=== PATIENT | male | born 1940 | race Caucasian/White ===

== ENCOUNTER 2017-07-04 16:20 | Inpatient (IN) | payer OTHER ==
[2017-07-04 19:02] LABS: BASOPHILS # (AUTO) 0.2 X10^3/uL (0.0-0.1); BASOPHILS % (AUTO) 0.4 % (0.2-1.0); EOSINOPHILS # (AUTO) 0.2 x10^3/uL (0.0-0.2); EOSINOPHILS % (AUTO) 0.3 % (0.9-2.9); HEMATOCRIT 28.1 % (42.0-54.0); LYMPHOCYTES % (AUTO) 1.7 % (21.0-51.0); MEAN CORPUSCULAR HEMOGLOBIN 24.8 pg (27.0-34.0); MEAN CORPUSCULAR VOLUME 77.5 fL (80.0-100.0); MEAN PLATELET VOLUME 9.1 fL (7.4-11.0); MONOCYTES # (AUTO) 1.9 x10^3/uL (0.3-0.8); MONOCYTES % (AUTO) 3.2 % (0.0-13.0); NEUTROPHILS # (AUTO) 55.8 x10^3/uL (2.2-4.8); NEUTROPHILS % (AUTO) 94.4 % (42.0-75.0); PLATELET COUNT 276 X10^3/uL (150.0-450.0); RED BLOOD COUNT 3.63 X10^6/uL (4.7-6.0); RED CELL DISTRIBUTION WIDTH 21.9 % (11.6-16.5)
[2017-07-04 19:13] LABS: ALANINE AMINOTRANSFERASE 50 Units/L (12-78); ALBUMIN 1.8 g/dL (3.4-5.0); ALKALINE PHOSPHATASE 509 Units/L (46-116); ASPARTATE AMINO TRANSFERASE 49 Units/L (15-37); BLOOD UREA NITROGEN 45 mg/dL (7-18); CALCIUM 7.7 mg/dL (8.5-10.1); CARBON DIOXIDE 27.2 mmol/L (21-32); CHLORIDE 97 mmol/L (98-107); COR CA(FOR HYPOALB) 9.5 mg/dL (8.5-10.1); CREATININE 2.07 mg/dL (0.70-1.30); SODIUM 133 mmol/L (136-145); TOTAL PROTEIN 5.8 g/dL (6.4-8.2); WHITE BLOOD COUNT 59.1 X10^3/uL (3.6-10.0); eGFR BLACK RACES 40 (>60); eGFR NON BLACK RACES 33 (>60)
[2017-07-04 19:18] LABS: BAND NEUTROPHILS % 2 % (0-10)
[2017-07-04 19:19] LABS: ANISOCYTOSIS 1+; PLATELET MORPHOLOGY COMMENT NORMAL (NORMAL)
[2017-07-04 19:20] LABS: HYPOCHROMASIA SLIGHT; POIKILOCYTOSIS SLIGHT
[2017-07-04] MEDS: NS 1000 ML 1,000 ML IV SCH (21:28)
[2017-07-04] MEDS: FLAGYL TAB 500 MG PO SCH (21:29)
[2017-07-04] MEDS: CLEOCIN PO SCH (21:29)
[2017-07-05] MEDS: FLAGYL TAB 500 MG PO SCH ×3 (05:51→22:06)
[2017-07-05 06:21] VITALS: BMI 18.9
[2017-07-05 07:15] LABS: ALANINE AMINOTRANSFERASE 41 Units/L (12-78); ALBUMIN 1.7 g/dL (3.4-5.0); ALKALINE PHOSPHATASE 477 Units/L (46-116); ASPARTATE AMINO TRANSFERASE 41 Units/L (15-37); BLOOD UREA NITROGEN 49 mg/dL (7-18); CALCIUM 7.7 mg/dL (8.5-10.1); CARBON DIOXIDE 24.9 mmol/L (21-32); CHLORIDE 97 mmol/L (98-107); COR CA(FOR HYPOALB) 9.5 mg/dL (8.5-10.1); CREATININE 2.12 mg/dL (0.70-1.30); EOSINOPHILS # (AUTO) 0.1 x10^3/uL (0.0-0.2); EOSINOPHILS % (AUTO) 0.2 % (0.9-2.9); HEMATOCRIT 27.2 % (42.0-54.0); HEMOGLOBIN 8.7 g/dL (13.5-18.0); SODIUM 133 mmol/L (136-145); TOTAL PROTEIN 5.5 g/dL (6.4-8.2); eGFR BLACK RACES 39 (>60); eGFR NON BLACK RACES 33 (>60)
[2017-07-05 07:22] LABS: BASOPHILS # (AUTO) 0.3 X10^3/uL (0.0-0.1); BASOPHILS % (AUTO) 0.5 % (0.2-1.0); LYMPHOCYTES # (AUTO) 1.2 X10^3/uL (1.3-2.9); LYMPHOCYTES % (AUTO) 1.7 % (21.0-51.0); MEAN CORPUSCULAR HEMOGLOBIN 24.8 pg (27.0-34.0); MEAN CORPUSCULAR HGB CONC 31.8 g/dL (33.0-35.0); MEAN CORPUSCULAR VOLUME 78.1 fL (80.0-100.0); MEAN PLATELET VOLUME 9.8 fL (7.4-11.0); MONOCYTES % (AUTO) 4.4 % (0.0-13.0); NEUTROPHILS # (AUTO) 63.3 x10^3/uL (2.2-4.8); NEUTROPHILS % (AUTO) 93.2 % (42.0-75.0); PLATELET COUNT 261 X10^3/uL (150.0-450.0); RED BLOOD COUNT 3.49 X10^6/uL (4.7-6.0)
[2017-07-05 07:30] LABS: WHITE BLOOD COUNT 67.9 X10^3/uL (3.6-10.0)
[2017-07-05 07:31] LABS: BAND NEUTROPHILS % 8 % (0-10); PLATELET MORPHOLOGY COMMENT NORMAL (NORMAL)
[2017-07-05 07:32] LABS: ANISOCYTOSIS 1+
[2017-07-05] MEDS: NS 1000 ML 1,000 ML IV SCH ×2 (07:41→23:37)
[2017-07-05] MEDS ORDERED: TYLENOL #3 TAB (W/CODEINE) PO PRN (08:05)
[2017-07-05] MEDS: CLEOCIN PO SCH (08:12)
--- NOTE | 2017-07-05 08:24 | DR.H&P ---
H&P - History & Physical for Day of: H&P Date: 07/04/17 - Chief Complaint Chief Complaint: C Diff + with elevated WBC - Allergies Allergies/Adverse Reactions: Allergies Allergy/AdvReac Type Severity Reaction Status Date / Time No Known Drug Allergies Allergy Verified 07/04/17 18:41 - History of Present Illness History of Present Illness: the patient is a 76-year-old white male [facility]. Patient tested positive for C. diff. Was started on Flagyl and Vanco. Labs drawn. WBC noted to be 66K. Patient mildly dehydrated. Will admit for IV Fluids and observation. - Past Medical History Past Medical History: Anemia, CHF, COPD, Hypertension Additional Medical History: Pneumonia, A Fib, C Diff, Anemia, Constipation - Past Surgical History Surgical History: TURP Additional Surgical History: Pacemaker - Family History Family Medical History: Cancer, [place], Coronary Artery Disease - Social History Does patient currently use any type of tobacco product: No Have you used tobacco products in the last 12 months: No Type of Tobacco Use: None Does any household member use tobacco: No Alcohol Use: None Drug Use: None - Medications Home Medications: Acetaminophen [TYLENOL 325 MG TAB *] 2 tab PO Q4H PRN 07/04/17 [History Confirmed 07/04/17] Acetaminophen/Codeine Tab [TYLENOL w/CODEINE #3 (300 MG/30 MG) *] 1 tab PO Q6H PRN 07/04/17 [History Confirmed 07/04/17] Docusate Sodium [Colace] 1 cap PO DAILY 07/04/17 [History Confirmed 07/04/17] Fluticasone/Vilanterol [Breo Ellipta 100-25 Mcg INH] 1 puff INH DAILY 07/04/17 [ History Confirmed 07/04/17] Furosemide [LASIX TAB 40 MG *] 1 tab PO DAILY 07/04/17 [History Confirmed ] Ipratropium/Albuterol Nebule [DUONEB 0.5 MG/3 MG NEBULE *] 1 vial INH TID [History Confirmed 07/04/17] Loperamide HCl [Imodium A-D] 1 tab PO PRN PRN 07/04/17 [History Confirmed ] Loratadine [Claritin] 1 tab PO DAILY 07/04/17 [History Confirmed 07/04/17] Metronidazole [FLAGYL 500 MG *] 1 tab PO TID 07/04/17 [History Confirmed ] Misc Home Med [Patient's Home Medication] 1 applic TOP Q6H PRN 07/04/17 [ History Confirmed 07/04/17] Misc Home Med [Patient's Home Medication] 1 cap PO TID 07/04/17 [History Confirmed 07/04/17] Misc Home Med [Patient's Home Medication] 5 ml PO QID 07/04/17 [History Confirmed 07/04/17] Ondansetron HCl [ZOFRAN TAB 4 MG *] 1 tab PO Q6H PRN 07/04/17 [History Confirmed 07/04/17] RX: Amiodarone HCl 1 tab PO DAILY 07/04/17 [History Confirmed 07/04/17] RX: Aspirin EC [ASPIRIN EC 81 MG *] 1 tab PO DAILY 07/04/17 [History Confirmed 07/04/17] RX: Atorvastatin Calcium 1 tab PO DAILY 07/04/17 [History Confirmed 07/04/17] RX: Digoxin [LANOXIN TAB 0.125 MG *] 1 tab PO DAILY 07/04/17 [History Confirmed 07/04/17] RX: Ferrous Sulfate 1 tab PO DAILY 07/04/17 [History Confirmed 07/04/17] RX: Finasteride [Proscar] 1 tab PO DAILY 07/04/17 [History Confirmed 07/04/17] RX: Ibuprofen 2 tab PO Q4H PRN 07/04/17 [History Confirmed 07/04/17] RX: Metoprolol Tartrate 1 tab PO BID 07/04/17 [History Confirmed 07/04/17] RX: Omeprazole 1 cap PO DAILY 07/04/17 [History Confirmed 07/04/17] RX: Potassium Chloride 1 tab PO DAILY 07/04/17 [History Confirmed 07/04/17] - Review of Systems Constitutional: Malaise Eyes: No Symptoms Reported ENT: No Symptoms Reported Respiratory: No Symptoms Reported Cardiovascular: No Symptoms Reported Gastrointestinal: Diarrhea Genitourinary: No Symptoms Reported Musculoskeletal: No Symptoms Reported Skin: No Symptoms Reported Neurological: No Symptoms Reported - Physical Exam Vital Signs: Temperature 98.9 F Pulse Rate [Right] 67 Respiratory Rate 22 Blood Pressure [Right Arm] 126/53 O2 Sat by Pulse Oximetry 100 Oriented: Normal Eyes: Normal Ear: Normal Nose: Normal Throat: Normal Respiratory: Clear Throughout Cardiovascular: Normal : Normal Auscultation: Bowel Sounds: Normal Palpation: Normal Tenderness: Normal Skin: Normal Musculoskeletal: Normal Psychiatric: Normal Mood Description: Calm Affect: Normal Speech Pattern: Clear - Assessment/Plan (1) C. difficile diarrhea Status: Acute Plan: Flagyl and Vanco (2) Leukocytosis Status: Acute Plan: Labs daily. Vanco and Flagyl (3) Acute on chronic kidney failure Status: Acute Plan: IV Hydration, Labs
[2017-07-05] MEDS ORDERED: ADVIL TAB 200 MG PO PRN (08:29)
[2017-07-05] MEDS ORDERED: ZOFRAN TAB 4 MG PO PRN (08:29)
[2017-07-05] MEDS ORDERED: TYLENOL 325 MG TAB PO PRN (08:29)
[2017-07-05] MEDS ORDERED: LANOXIN PO SCH (09:00)
[2017-07-05] MEDS ORDERED: PATIENT'S HOME MEDICATION (Fluticasone/Vilanterol [Breo Ellipta 100-25 Mcg Inh] 1 PUFF) INH SCH (09:00)
[2017-07-05] MEDS ORDERED: IMODIUM CAP 2 MG PO PRN (09:45)
[2017-07-05] MEDS ORDERED: PHARMACY CONSULT - VANCOMYCIN XX SCH (10:00)
[2017-07-05] MEDS: MORPHINE SULFATE INJ 2 MG INJ IVP PRN (10:20)
[2017-07-05] MEDS: ASPIRIN EC 81 MG PO SCH (10:24)
[2017-07-05] MEDS: CLARITIN PO SCH (10:24)
[2017-07-05] MEDS: CORDARONE TAB 200 MG PO SCH (10:24)
[2017-07-05] MEDS: COLACE CAP 100 MG PO SCH (10:24)
[2017-07-05] MEDS: LASIX PO SCH (10:25)
[2017-07-05] MEDS: LIPITOR TAB 40 MG PO SCH (10:25)
[2017-07-05] MEDS: LOPRESSOR TAB 50 MG PO SCH ×2 (10:25→20:31)
[2017-07-05] MEDS: PROSCAR PO SCH (10:26)
[2017-07-05] MEDS: PriLOSEC PO SCH (10:26)
[2017-07-05] MEDS: HEMOCYTE-PLUS PO SCH (10:27)
[2017-07-05 11:47] LABS: STOOL FOR WBC POSITIVE (NEGATIVE)
[2017-07-05] MEDS: VANCOMYCIN HCL PO SCH ×3 (13:42→20:31)
[2017-07-05] MEDS: DUONEB 0.5 MG/3 MG NEB SCH ×2 (14:00→21:46)
[2017-07-05] MEDS ORDERED: FLAGYL TAB 500 MG PO SCH (14:00)
--- NOTE | 2017-07-05 14:06 | RAD ---
HISTORY: Leukocytosis. Study: Portable chest. Comparison: None. Findings: The trachea is midline. The cardiac silhouette is unremarkable. Multi lead left chest cardiac pacema ker. No obvious focal consolidation, pleural effusion, or pneumothorax. The bony thorax is unremark able. IMPRESSION: No acute cardiopulmonary disease. Reported By:
--- NOTE | 2017-07-05 18:01 | PCM.PROG ---
Progress Note - Progress Note for Day of Date: 07/05/17 - Subjective Subjective: 76WM DIRECT ADMIT FROM [facility] WITH C DIFF COLITIS AND EXTREME LEUKOCYTOSIS. PT CO ABDOMINAL TENDERNESS THIS AM, HURTING ALL OVER STOMACH. PT IS CURRENTLY ON IV ATBX THERAPY, CONTINUE HOME MEDICATION, HOLDING LAXOXIN DUE TO DIG LEVEL, CARDIAC MONITORING, CT ABD PELVIS, STOOLS STUDIES, REPEAT AM LABS - Past Medical Family Social History Allergies: Allergies No Known Drug Allergies Allergy (Verified 07/04/17 18:41) - Review of Systems ROS: No change since H&P - Vital Signs and I&O's Vital Signs: Temperature 98.1 F Pulse Rate [Right] 68 Pulse Rate 70 Respiratory Rate 24 Blood Pressure [Right Arm] 138/32 O2 Sat by Pulse Oximetry 98 Intake and Output: Intake & Output 07/03/17 07/04/17 07/05/17 07/06/17 11:59 11:59 11:59 11:59 Intake Total 1150 760 Output Total 3 Balance 1147 760 - Physical Exam Oriented: Normal Eyes: Normal Ear: Normal Nose: Normal Throat: Normal Respiratory: Diminished Cardiovascular: Normal. negative: Edema : Normal Auscultation: Bowel Sounds: Normal Tenderness: Diffuse Skin: Decreased Turgur Musculoskeletal: Normal Psychiatric: Normal Mood Description: Calm Affect: Normal Speech Pattern: Clear - Laboratory and Diagnostics Result Diagrams: 07/05/17 05:50 07/05/17 05:50 Labs: 07/05/17 10:19 Stool - Final Laboratory WBC 67.9 X10^3/uL (3.6-10.0) H* D 07/05/17 05:50 RBC 3.49 X10^6/uL (4.7-6.0) L 07/05/17 05:50 Hgb 8.7 g/dL (13.5-18.0) L 07/05/17 05:50 Hct 27.2 % (42.0-54.0) L 07/05/17 05:50 MCV 78.1 fL (80.0-100.0) L 07/05/17 05:50 MCH 24.8 pg (27.0-34.0) L 07/05/17 05:50 MCHC 31.8 g/dL (33.0-35.0) L 07/05/17 05:50 RDW 22.0 % (11.6-16.5) H 07/05/17 05:50 Plt Count 261 X10^3/uL (150.0-450.0) 07/05/17 05:50 Plt Count Comment Adequate (ADEQUATE) 07/05/17 05:50 MPV 9.8 fL (7.4-11.0) 07/05/17 05:50 Neut % (Auto) 93.2 % (42.0-75.0) H 07/05/17 05:50 Lymph % (Auto) 1.7 % (21.0-51.0) L 07/05/17 05:50 [place] % (Auto) 4.4 % (0.0-13.0) 07/05/17 05:50 Eos % (Auto) 0.2 % (0.9-2.9) L 07/05/17 05:50 Baso % (Auto) 0.5 % (0.2-1.0) 07/05/17 05:50 Neut # (Auto) 63.3 x10^3/uL (2.2-4.8) H 07/05/17 05:50 Lymph # (Auto) 1.2 X10^3/uL (1.3-2.9) L 07/05/17 05:50 [place] # (Auto) 3.0 x10^3/uL (0.3-0.8) H 07/05/17 05:50 Eos # (Auto) 0.1 x10^3/uL (0.0-0.2) 07/05/17 05:50 Baso # (Auto) 0.3 X10^3/uL (0.0-0.1) H 07/05/17 05:50 Absolute Nucleated RBC 0.0 /100WBC 07/05/17 05:50 Total Counted 100 07/05/17 05:50 Neutrophils % (Manual) 85 % (39-76) H 07/05/17 05:50 Band Neutrophils % 8 % (0-10) 07/05/17 05:50 Lymphocytes % (Manual) 2 % (13-43) L 07/05/17 05:50 Monocytes % (Manual) 5 % (4-9) 07/05/17 05:50 Plt Morphology Comment Normal (NORMAL) 07/05/17 05:50 RBC Morphology Abnormal (NORMAL) 07/05/17 05:50 Hypochromasia Slight A 07/04/17 18:41 Poikilocytosis Slight A 07/04/17 18:41 Anisocytosis 1+ A 07/05/17 05:50 Sodium 133 mmol/L (136-145) L 07/05/17 05:50 Corrected Sodium TNP 07/05/17 05:50 Potassium 4.5 mmol/L (3.5-5.1) 07/05/17 05:50 Chloride 97 mmol/L (98-107) L 07/05/17 05:50 Carbon Dioxide 24.9 mmol/L (21-32) 07/05/17 05:50 BUN 49 mg/dL (7-18) H 07/05/17 05:50 Creatinine 2.12 mg/dL (0.70-1.30) H 07/05/17 05:50 Est GFR (MDRD) Af Amer 39 (>60) L 07/05/17 05:50 Est GFR (MDRD) Non-Af 33 (>60) L 07/05/17 05:50 Glucose 88 mg/dL (65-99) 07/05/17 05:50 Calcium 7.7 mg/dL (8.5-10.1) L 07/05/17 05:50 Corrected Calcium 9.5 mg/dL (8.5-10.1) 07/05/17 05:50 Total Bilirubin 0.40 mg/dL (0.2-1.0) 07/05/17 05:50 AST 41 Units/L (15-37) H 07/05/17 05:50 ALT 41 Units/L (12-78) 07/05/17 05:50 Alkaline Phosphatase 477 Units/L (46-116) H 07/05/17 05:50 Total Protein 5.5 g/dL (6.4-8.2) L 07/05/17 05:50 Albumin 1.7 g/dL (3.4-5.0) L 07/05/17 05:50 Globulin 3.8 g/dL (2.5-4.5) 07/05/17 05:50 Albumin/Globulin Ratio 0.4 Ratio (1.1-2.1) L 07/05/17 05:50 Stool Description Fob tube 07/05/17 10:19 Stl Occult Blood (IFOB) Positive (NEGATIVE) A 07/05/17 10:19 Stool for White Cells Positive (NEGATIVE) A 07/05/17 10:19 Stl C. diff Tox B Gene Positive (NEGATIVE) A 07/05/17 10:19 Stl C. diff 027-NAP1-BI Positive (NEGATIVE) A 07/05/17 10:19 Digoxin 2.94 ng/mL (0.9-2) H* 07/05/17 05:50 - Plan (1) C. difficile diarrhea Status: Acute Plan: Flagyl and Vanco, PAIN AND NAUSEA CONTROL. REPEAT STOOL STUDIES. AM LABS , CBC WITH PERIPHERAL SMEAR. EKG, CXR, CT ABD PELVIS (2) Abdominal pain Status: Acute (3) Leukocytosis Status: Acute Plan: Labs daily. Vanco and Flagyl (4) Atrial fibrillation Status: Acute (5) Acute on chronic kidney failure Status: Acute Plan: IV Hydration, Labs (6) Atrial fibrillation Status: Acute
[2017-07-05] MEDS ORDERED: TYLENOL #3 TAB (W/CODEINE) PO ONE (22:09)
[2017-07-05] MEDS: TYLENOL #3 TAB (W/CODEINE) PO PRN (22:11)
--- NOTE | 2017-07-05 22:46 | CT ---
CT abdomen and pelvis without contrast Indication: Abdominal pain with leukocytosis Comparison: None available Technique: Multiple axial images of the abdomen and pelvis were obtained from the lung bases to the pubic symphy sis without the administration of IV contrast. Findings: There is increasing peribronchial consolidation within the right middle lobe and left lower lobe susp icious for developing infiltrate/pneumonia. There is a moderate size left pleural effusion. Given ruiz itations of a noncontrast examination no focal hepatic lesion is identified. Previous cholecystectomy is noted. Bile ducts are normal in caliber. The spleen demonstrates very thin peripheral calcificati on without discrete splenic lesion. Moderate atrophy of the entire pancreas without mass or ductal di latation. The adrenal glands are normal. Neither kidney demonstrates evidence of nephrolithiasis or h ydronephrosis. There is a round increased density nodule within the lower pole of the left kidney see n on coronal image 33 measuring approximately 1 cm which is indeterminate. The upper GI tract demonst rates no evidence of mass or obstruction. Urinary bladder is normal. Prostate gland is enlarged with central hypoattenuation potentially representing prior TURP however clinical correlation is needed. T he rectum and distal colon demonstrate moderate bowel wall thickening with surrounding inflammatory c hange consistent with fairly severe proctocolitis. Additionally there is moderate thickening and surr ounding inflammatory change within the cecum. Terminal ileum is unremarkable. The appendix is not wel l visualized. There is presacral stranding and fluid. Abdominal aorta demonstrates aneurysmal dilatat ion measuring approximately 2.6 cm in greatest caliber. Review of bone windows demonstrates no acute osseous abnormality. Degenerative change is noted within the right greater than left femoroacetabular joints. Impression: 1.Fairly severe bowel wall thickening with surrounding inflammatory change within the rectum, distal colon and cecum consistent with acute proctocolitis, It is not possible to exclude underlying neoplas m within the cecum or distal colon and attention on follow-up examination or colonoscopy is recommend ed for further evaluation. Small amount presacral fluid and stranding is suspected be reactive to the above proctocolitis. 2. A 1 cm increased density nodule within the periphery of the midpole of the left kidney is indeterm inate both hyperdense/hemorrhagic cyst or underlying solid renal neoplasm are considerations and atte ntion on follow-up examination with IV contrast is needed. 3. Prostatomegaly with CT findings suggesting prior TURP. 4. Infrarenal abdominal aortic aneurysm measuring 2.6 cm in greatest dimension with moderate calcifie d atherosclerotic disease. 5. Peribronchial consolidation within the right middle lobe and left lower lobe and small left-sided pleural effusion are suspect represent developing infiltrate/pneumonia. 6. Refer to above for other incidental findings. Reported By:
[2017-07-06] MEDS: DUONEB 0.5 MG/3 MG NEB SCH ×3 (05:01→20:30)
[2017-07-06] MEDS: FLAGYL TAB 500 MG PO SCH ×3 (05:58→21:05)
[2017-07-06 06:37] LABS: ALANINE AMINOTRANSFERASE 29 Units/L (12-78); ALBUMIN 1.5 g/dL (3.4-5.0); ALKALINE PHOSPHATASE 390 Units/L (46-116); ASPARTATE AMINO TRANSFERASE 27 Units/L (15-37); BLOOD UREA NITROGEN 48 mg/dL (7-18); CALCIUM 7.3 mg/dL (8.5-10.1); CARBON DIOXIDE 22.4 mmol/L (21-32); CHLORIDE 101 mmol/L (98-107); COR CA(FOR HYPOALB) 9.3 mg/dL (8.5-10.1); CREATININE 2.05 mg/dL (0.70-1.30); SODIUM 134 mmol/L (136-145); TOTAL PROTEIN 4.9 g/dL (6.4-8.2); eGFR BLACK RACES 41 (>60); eGFR NON BLACK RACES 34 (>60)
[2017-07-06] MEDS: MORPHINE SULFATE INJ 2 MG INJ IVP PRN ×2 (07:05→12:51)
[2017-07-06 07:26] LABS: BASOPHILS # (AUTO) 0.1 X10^3/uL (0.0-0.1); BASOPHILS % (AUTO) 0.2 % (0.2-1.0); EOSINOPHILS # (AUTO) 0.1 x10^3/uL (0.0-0.2); EOSINOPHILS % (AUTO) 0.2 % (0.9-2.9); HEMATOCRIT 25.8 % (42.0-54.0); HEMOGLOBIN 8.1 g/dL (13.5-18.0); LYMPHOCYTES # (AUTO) 0.6 X10^3/uL (1.3-2.9); LYMPHOCYTES % (AUTO) 0.9 % (21.0-51.0); MEAN CORPUSCULAR HEMOGLOBIN 24.7 pg (27.0-34.0); MEAN CORPUSCULAR HGB CONC 31.5 g/dL (33.0-35.0); MEAN CORPUSCULAR VOLUME 78.4 fL (80.0-100.0); MEAN PLATELET VOLUME 9.3 fL (7.4-11.0); MONOCYTES % (AUTO) 4.4 % (0.0-13.0); NEUTROPHILS # (AUTO) 63.4 x10^3/uL (2.2-4.8); NEUTROPHILS % (AUTO) 94.3 % (42.0-75.0); PLATELET COUNT 261 X10^3/uL (150.0-450.0); RED BLOOD COUNT 3.29 X10^6/uL (4.7-6.0); RED CELL DISTRIBUTION WIDTH 22.1 % (11.6-16.5)
[2017-07-06 07:31] LABS: WHITE BLOOD COUNT 67.3 X10^3/uL (3.6-10.0)
[2017-07-06] MEDS: BUTT CREAM (COMPOUND) TOP PRN (07:37)
[2017-07-06] MEDS: CLARITIN PO SCH (09:10)
[2017-07-06] MEDS: ASPIRIN EC 81 MG PO SCH (09:10)
[2017-07-06] MEDS: HEMOCYTE-PLUS PO SCH (09:11)
[2017-07-06] MEDS: COLACE CAP 100 MG PO SCH (09:11)
[2017-07-06] MEDS: LIPITOR TAB 40 MG PO SCH (09:11)
[2017-07-06] MEDS: LOPRESSOR TAB 50 MG PO SCH ×2 (09:11→21:05)
[2017-07-06] MEDS: K-DUR TAB 20 MEQ PO SCH (09:11)
[2017-07-06] MEDS: LASIX PO SCH (09:11)
[2017-07-06] MEDS: CORDARONE TAB 200 MG PO SCH (09:11)
[2017-07-06] MEDS: PROSCAR PO SCH (09:13)
[2017-07-06] MEDS: PriLOSEC PO SCH (09:13)
[2017-07-06] MEDS: NS 1000 ML 1,000 ML IV SCH (09:14)
[2017-07-06] MEDS: VANCOMYCIN HCL PO SCH ×4 (09:14→21:05)
--- NOTE | 2017-07-06 17:39 | PCM.PROG ---
Progress Note - Progress Note for Day of Date: 07/06/17 - Subjective Subjective: 76WM DIRECT ADMIT FROM [facility] WITH C DIFF COLITIS AND EXTREME LEUKOCYTOSIS. CBC SMEAR SENT FOR PATHOLOGY R/O LEUKEMIA. DISCUSSED CONSULTING ONCOLOGY AFTER PATH RESULTS. PT HAD CT ABD/PELVIS REVIEWED RESULTS WITH PT. PT HAS IMPROVED ABDOMINAL PAIN WITH MORPHINE IV. WILL REPEAT AM LABS - Past Medical Family Social History Past Med/Fam/Surg Hx: No changes since H&P Allergies: Allergies No Known Drug Allergies Allergy (Verified 07/04/17 18:41) - Review of Systems ROS: No change since H&P - Vital Signs and I&O's Vital Signs: Temperature 97.8 F Pulse Rate [Right] 92 Pulse Rate 90 Respiratory Rate 20 Blood Pressure [Right Arm] 91/55 O2 Sat by Pulse Oximetry 97 Intake and Output: Intake & Output 07/04/17 07/05/17 07/06/17 07/07/17 11:59 11:59 11:59 11:59 Intake Total 1150 2210 640 Output Total 3 Balance 1147 2210 640 - Physical Exam Oriented: Normal Eyes: Normal Ear: Normal Nose: Normal Throat: Normal Respiratory: Diminished Cardiovascular: Normal. negative: Edema : Normal Auscultation: Bowel Sounds: Normal Tenderness: Diffuse (MILD) Skin: Decreased Turgur Musculoskeletal: Normal Psychiatric: Normal Mood Description: Calm Affect: Normal Speech Pattern: Clear, Appropriate - Laboratory and Diagnostics Result Diagrams: 07/06/17 06:05 07/06/17 06:05 Labs: 07/05/17 10:19 Stool Stool Culture - Preliminary 07/05/17 10:19 Stool - Final 07/04/17 18:52 Blood Blood Culture - Preliminary 07/04/17 18:41 Blood Blood Culture - Preliminary Laboratory WBC 67.3 X10^3/uL (3.6-10.0) H* 07/06/17 06:05 RBC 3.29 X10^6/uL (4.7-6.0) L 07/06/17 06:05 Hgb 8.1 g/dL (13.5-18.0) L 07/06/17 06:05 Hct 25.8 % (42.0-54.0) L 07/06/17 06:05 MCV 78.4 fL (80.0-100.0) L 07/06/17 06:05 MCH 24.7 pg (27.0-34.0) L 07/06/17 06:05 MCHC 31.5 g/dL (33.0-35.0) L 07/06/17 06:05 RDW 22.1 % (11.6-16.5) H 07/06/17 06:05 Plt Count 261 X10^3/uL (150.0-450.0) 07/06/17 06:05 Plt Count Comment Adequate (ADEQUATE) 07/05/17 05:50 MPV 9.3 fL (7.4-11.0) 07/06/17 06:05 Neut % (Auto) 94.3 % (42.0-75.0) H 07/06/17 06:05 Lymph % (Auto) 0.9 % (21.0-51.0) L 07/06/17 06:05 Delta % (Auto) 4.4 % (0.0-13.0) 07/06/17 06:05 Eos % (Auto) 0.2 % (0.9-2.9) L 07/06/17 06:05 Baso % (Auto) 0.2 % (0.2-1.0) 07/06/17 06:05 Neut # (Auto) 63.4 x10^3/uL (2.2-4.8) H 07/06/17 06:05 Lymph # (Auto) 0.6 X10^3/uL (1.3-2.9) L 07/06/17 06:05 [place] # (Auto) 3.0 x10^3/uL (0.3-0.8) H 07/06/17 06:05 Eos # (Auto) 0.1 x10^3/uL (0.0-0.2) 07/06/17 06:05 Baso # (Auto) 0.1 X10^3/uL (0.0-0.1) 07/06/17 06:05 Absolute Nucleated RBC 0.0 /100WBC 07/06/17 06:05 Total Counted 100 07/05/17 05:50 Neutrophils % (Manual) 85 % (39-76) H 07/05/17 05:50 Band Neutrophils % 8 % (0-10) 07/05/17 05:50 Lymphocytes % (Manual) 2 % (13-43) L 07/05/17 05:50 Monocytes % (Manual) 5 % (4-9) 07/05/17 05:50 Plt Morphology Comment Normal (NORMAL) 07/05/17 05:50 RBC Morphology Abnormal (NORMAL) 07/05/17 05:50 Hypochromasia Slight A 07/04/17 18:41 Poikilocytosis Slight A 07/04/17 18:41 Anisocytosis 1+ A 07/05/17 05:50 Sodium 134 mmol/L (136-145) L 07/06/17 06:05 Corrected Sodium TNP 07/06/17 06:05 Potassium 4.1 mmol/L (3.5-5.1) 07/06/17 06:05 Chloride 101 mmol/L (98-107) 07/06/17 06:05 Carbon Dioxide 22.4 mmol/L (21-32) 07/06/17 06:05 BUN 48 mg/dL (7-18) H 07/06/17 06:05 Creatinine 2.05 mg/dL (0.70-1.30) H 07/06/17 06:05 Est GFR (MDRD) Af Amer 41 (>60) L 07/06/17 06:05 Est GFR (MDRD) Non-Af 34 (>60) L 07/06/17 06:05 Glucose 91 mg/dL (65-99) 07/06/17 06:05 Calcium 7.3 mg/dL (8.5-10.1) L 07/06/17 06:05 Corrected Calcium 9.3 mg/dL (8.5-10.1) 07/06/17 06:05 Total Bilirubin 0.60 mg/dL (0.2-1.0) 07/06/17 06:05 AST 27 Units/L (15-37) 07/06/17 06:05 ALT 29 Units/L (12-78) 07/06/17 06:05 Alkaline Phosphatase 390 Units/L (46-116) H 07/06/17 06:05 Total Protein 4.9 g/dL (6.4-8.2) L 07/06/17 06:05 Albumin 1.5 g/dL (3.4-5.0) L 07/06/17 06:05 Globulin 3.4 g/dL (2.5-4.5) 07/06/17 06:05 Albumin/Globulin Ratio 0.4 Ratio (1.1-2.1) L 07/06/17 06:05 Stool Description Fob tube 07/05/17 10:19 Stl Occult Blood (IFOB) Positive (NEGATIVE) A 07/05/17 10:19 Stool for White Cells Positive (NEGATIVE) A 07/05/17 10:19 Stl C. diff Tox B Gene Positive (NEGATIVE) A 07/05/17 10:19 Stl C. diff 027-NAP1-BI Positive (NEGATIVE) A 07/05/17 10:19 Digoxin 2.94 ng/mL (0.9-2) H* 07/05/17 05:50 - Plan (1) C. difficile diarrhea Status: Acute Plan: Flagyl and Vanco, PAIN AND NAUSEA CONTROL. REPEAT STOOL STUDIES COLLECTED. AM LABS, CBC WITH PERIPHERAL SMEAR/ PATHOLOGY PENDING. ANUSOL SUPP. CONTINUE HOME MEDICATION, I & OS, AM CXR (2) Abdominal pain Status: Acute (3) Leukocytosis Status: Acute Plan: Labs daily. Vanco and Flagyl (4) Atrial fibrillation Status: Acute (5) Acute on chronic kidney failure Status: Acute Plan: IV Hydration, Labs (6) Proctitis Status: Acute Plan: IV ATBX, RECTAL CORTISONE
[2017-07-06] MEDS: ANUCORT-HC SUPP PR SCH ×2 (18:15→21:04)
[2017-07-07 04:26] LABS: BASOPHILS # (AUTO) 0.1 X10^3/uL (0.0-0.1); BASOPHILS % (AUTO) 0.2 % (0.2-1.0); EOSINOPHILS # (AUTO) 0.1 x10^3/uL (0.0-0.2); EOSINOPHILS % (AUTO) 0.2 % (0.9-2.9); HEMATOCRIT 25.7 % (42.0-54.0); HEMOGLOBIN 8.4 g/dL (13.5-18.0); LYMPHOCYTES # (AUTO) 0.8 X10^3/uL (1.3-2.9); LYMPHOCYTES % (AUTO) 1.4 % (21.0-51.0); MEAN CORPUSCULAR HEMOGLOBIN 25.5 pg (27.0-34.0); MEAN CORPUSCULAR HGB CONC 32.6 g/dL (33.0-35.0); MEAN CORPUSCULAR VOLUME 78.4 fL (80.0-100.0); MEAN PLATELET VOLUME 8.9 fL (7.4-11.0); MONOCYTES # (AUTO) 1.9 x10^3/uL (0.3-0.8); MONOCYTES % (AUTO) 3.4 % (0.0-13.0); NEUTROPHILS # (AUTO) 52.1 x10^3/uL (2.2-4.8); NEUTROPHILS % (AUTO) 94.8 % (42.0-75.0); PLATELET COUNT 244 X10^3/uL (150.0-450.0); RED BLOOD COUNT 3.28 X10^6/uL (4.7-6.0); RED CELL DISTRIBUTION WIDTH 21.9 % (11.6-16.5)
[2017-07-07 04:27] LABS: ALBUMIN 1.4 g/dL (3.4-5.0); CALCIUM 7.2 mg/dL (8.5-10.1); CARBON DIOXIDE 23.7 mmol/L (21-32); COR CA(FOR HYPOALB) 9.3 mg/dL (8.5-10.1); CREATININE 2.09 mg/dL (0.70-1.30); TOTAL PROTEIN 4.7 g/dL (6.4-8.2)
[2017-07-07 04:56] LABS: BAND NEUTROPHILS % 14 % (0-10)
[2017-07-07 04:57] LABS: ANISOCYTOSIS 1+; HYPOCHROMASIA SLIGHT; PLATELET MORPHOLOGY COMMENT NORMAL (NORMAL)
[2017-07-07] MEDS: DUONEB 0.5 MG/3 MG NEB SCH (05:00)
[2017-07-07] MEDS: NS 1000 ML 1,000 ML IV SCH (06:08)
[2017-07-07] MEDS: MORPHINE SULFATE INJ 2 MG INJ IVP PRN (06:08)
--- NOTE | 2017-07-07 07:35 | RAD ---
HISTORY: Shortness of breath Study: Chest AP portable Comparison: 07/05/2017 Findings: There is a pacemaker present on the left. The heart is within normal limits in size. No congestive he art failure is noted. The upper lung schultz are clear. Abnormal parenchymal density has developed in the medial lung bases bilaterally which could be on the basis of developing infiltrates or developing atelectasis. Follow-up is recommended. No pleural effusions are identified. The bony thorax is unrem arkable. IMPRESSION: Bibasilar opacities which could represent developing pneumonia, developing atelectasis or both. Follo w-up is recommended. Reported By:
[2017-07-07] MEDS: FLAGYL TAB 500 MG PO SCH ×3 (08:05→21:25)
[2017-07-07 08:36] LABS: CKMB % 4.2 % (<4); CREATINE KINASE 24 Units/L (39-308); CREATINE KINASE MB < 1.0 ng/mL (0-4.0); TROPONIN I < 0.02 ng/mL (0-1.5)
[2017-07-07 09:03] LABS: ABG ALLEN TEST POS; ABG BASE EXCESS -1.7 mmol/L (-2.0-2.0); ABG HCO3 21.5 mmol/L (22-26)
[2017-07-07] MEDS: CLARITIN PO SCH (09:11)
[2017-07-07] MEDS: COLACE CAP 100 MG PO SCH (09:11)
[2017-07-07] MEDS: ANUCORT-HC SUPP PR SCH ×2 (09:11→21:26)
[2017-07-07] MEDS: ASPIRIN EC 81 MG PO SCH (09:11)
[2017-07-07] MEDS: HEMOCYTE-PLUS PO SCH (09:12)
[2017-07-07] MEDS: LIPITOR TAB 40 MG PO SCH (09:12)
[2017-07-07] MEDS: K-DUR TAB 20 MEQ PO SCH (09:12)
[2017-07-07] MEDS: CORDARONE TAB 200 MG PO SCH (09:12)
[2017-07-07] MEDS: PriLOSEC PO SCH (09:12)
[2017-07-07] MEDS: LASIX PO SCH (09:12)
[2017-07-07] MEDS: LOPRESSOR TAB 50 MG PO SCH ×2 (09:12→21:25)
[2017-07-07] MEDS: PROSCAR PO SCH (09:13)
[2017-07-07] MEDS: VANCOMYCIN HCL PO SCH ×4 (09:13→21:26)
[2017-07-07] MEDS: XOPENEX 1.25 MG/3 ML NEBULE NEB SCH ×3 (12:00→22:17)
[2017-07-07] MEDS ORDERED: SALINE 3% 15 ML NEB TX ONE (12:27)
--- NOTE | 2017-07-07 14:48 | PCM.PROG ---
Progress Note - Progress Note for Day of Date: 07/07/17 - Subjective Subjective: 76WM DIRECT ADMIT FROM [facility] WITH C DIFF COLITIS AND EXTREME LEUKOCYTOSIS. CBC SMEAR SENT FOR PATHOLOGY R/O LEUKEMIA. DISCUSSED CONSULTING ONCOLOGY AFTER PATH RESULTS. PT CONTINUES WITH CO ABDOMINAL PAIN, PT HAS HX AFIB AND TELEMERTY WITH RATE 120'S-130'S. PT MOVED TO ICU, FOR CRITICAL CARE MANAGEMENT - Past Medical Family Social History Past Med/Fam/Surg Hx: No changes since H&P Allergies: Allergies No Known Drug Allergies Allergy (Verified 07/04/17 18:41) - Review of Systems ROS: No change since H&P, Changes notes (describe) - Vital Signs and I&O's Vital Signs: Temperature 98.7 F Pulse Rate [Right] 122 Pulse Rate 110 Respiratory Rate 24 Blood Pressure [Right Arm] 101/53 O2 Sat by Pulse Oximetry 97 Intake and Output: Intake & Output 07/05/17 07/06/17 07/07/17 07/08/17 11:59 11:59 11:59 11:59 Intake Total 1150 2210 1790 Output Total 3 Balance 1147 2210 1790 - Physical Exam Oriented: Normal Eyes: Normal Ear: Normal Nose: Normal Throat: Normal Respiratory: Diminished Cardiovascular: Normal. negative: Edema : Normal Auscultation: Bowel Sounds: Normal Tenderness: Diffuse (MILD) Skin: Decreased Turgur Musculoskeletal: Normal Psychiatric: Normal Mood Description: Calm Affect: Normal Speech Pattern: Clear, Appropriate - Laboratory and Diagnostics Result Diagrams: 07/07/17 03:45 07/07/17 03:45 Labs: 07/05/17 10:19 Stool Stool Culture - Final 07/05/17 10:19 Stool - Final 07/04/17 18:52 Blood Blood Culture - Preliminary 07/04/17 18:41 Blood Blood Culture - Preliminary Laboratory WBC 55.0 X10^3/uL (3.6-10.0) H* D 07/07/17 03:45 RBC 3.28 X10^6/uL (4.7-6.0) L 07/07/17 03:45 Hgb 8.4 g/dL (13.5-18.0) L 07/07/17 03:45 Hct 25.7 % (42.0-54.0) L 07/07/17 03:45 MCV 78.4 fL (80.0-100.0) L 07/07/17 03:45 MCH 25.5 pg (27.0-34.0) L 07/07/17 03:45 MCHC 32.6 g/dL (33.0-35.0) L 07/07/17 03:45 RDW 21.9 % (11.6-16.5) H 07/07/17 03:45 Plt Count 244 X10^3/uL (150.0-450.0) 07/07/17 03:45 Plt Count Comment Adequate (ADEQUATE) 07/07/17 03:45 MPV 8.9 fL (7.4-11.0) 07/07/17 03:45 Neut % (Auto) 94.8 % (42.0-75.0) H 07/07/17 03:45 Lymph % (Auto) 1.4 % (21.0-51.0) L 07/07/17 03:45 [place] % (Auto) 3.4 % (0.0-13.0) 07/07/17 03:45 Eos % (Auto) 0.2 % (0.9-2.9) L 07/07/17 03:45 Baso % (Auto) 0.2 % (0.2-1.0) 07/07/17 03:45 Neut # (Auto) 52.1 x10^3/uL (2.2-4.8) H 07/07/17 03:45 Lymph # (Auto) 0.8 X10^3/uL (1.3-2.9) L 07/07/17 03:45 [place] # (Auto) 1.9 x10^3/uL (0.3-0.8) H 07/07/17 03:45 Eos # (Auto) 0.1 x10^3/uL (0.0-0.2) 07/07/17 03:45 Baso # (Auto) 0.1 X10^3/uL (0.0-0.1) 07/07/17 03:45 Absolute Nucleated RBC 0.0 /100WBC 07/07/17 03:45 Total Counted 100 07/07/17 03:45 Neutrophils % (Manual) 81 % (39-76) H 07/07/17 03:45 Band Neutrophils % 14 % (0-10) H 07/07/17 03:45 Lymphocytes % (Manual) 2 % (13-43) L 07/07/17 03:45 Monocytes % (Manual) 3 % (4-9) L 07/07/17 03:45 Plt Morphology Comment Normal (NORMAL) 07/07/17 03:45 RBC Morphology Abnormal (NORMAL) 07/07/17 03:45 Hypochromasia Slight A 07/07/17 03:45 Poikilocytosis Slight A 07/04/17 18:41 Anisocytosis 1+ A 07/07/17 03:45 Smear Path Review See note 07/05/17 05:50 Sample Site Lra 07/07/17 09:00 ABG pH 7.450 (7.35-7.45) 07/07/17 09:00 ABG pCO2 31.0 mmHg (35.0-45.0) L 07/07/17 09:00 ABG pO2 95.0 mmHg (80.0-100.0) 07/07/17 09:00 ABG HCO3 21.5 mmol/L (22-26) L 07/07/17 09:00 ABG O2 Saturation 98.0 % (90-100) 07/07/17 09:00 ABG Base Excess -1.7 mmol/L (-2.0-2.0) 07/07/17 09:00 Eb Test Pos 07/07/17 09:00 A-a Gradient 66.0 mmHg 07/07/17 09:00 FiO2 28.000 07/07/17 09:00 Blood Gas Comments Tasia well cs 07/07/17 09:00 Sodium 136 mmol/L (136-145) 07/07/17 03:45 Corrected Sodium 136 mmol/L (136-145) 07/07/17 03:45 Potassium 4.1 mmol/L (3.5-5.1) 07/07/17 03:45 Chloride 103 mmol/L (98-107) 07/07/17 03:45 Carbon Dioxide 23.7 mmol/L (21-32) 07/07/17 03:45 BUN 47 mg/dL (7-18) H 07/07/17 03:45 Creatinine 2.09 mg/dL (0.70-1.30) H 07/07/17 03:45 Est GFR (MDRD) Af Amer 40 (>60) L 07/07/17 03:45 Est GFR (MDRD) Non-Af 33 (>60) L 07/07/17 03:45 Glucose 113 mg/dL (65-99) H 07/07/17 03:45 Lactic Acid 1.7 mmol/L (0.4-2.0) 07/07/17 09:13 Calcium 7.2 mg/dL (8.5-10.1) L 07/07/17 03:45 Corrected Calcium 9.3 mg/dL (8.5-10.1) 07/07/17 03:45 Total Bilirubin 0.50 mg/dL (0.2-1.0) 07/07/17 03:45 AST 27 Units/L (15-37) 07/07/17 03:45 ALT 20 Units/L (12-78) 07/07/17 03:45 Alkaline Phosphatase 429 Units/L (46-116) H 07/07/17 03:45 Creatine Kinase 24 Units/L (39-308) L 07/07/17 08:05 CK-MB (CK-2) < 1.0 ng/mL (0-4.0) 07/07/17 08:05 CK/CKMB % Calc 4.2 % (<4) 07/07/17 08:05 Troponin I < 0.02 ng/mL (0-1.5) 07/07/17 08:05 Total Protein 4.7 g/dL (6.4-8.2) L 07/07/17 03:45 Albumin 1.4 g/dL (3.4-5.0) L 07/07/17 03:45 Globulin 3.3 g/dL (2.5-4.5) 07/07/17 03:45 Albumin/Globulin Ratio 0.4 Ratio (1.1-2.1) L 07/07/17 03:45 Stool Description Fob tube 07/05/17 10:19 Stl Occult Blood (IFOB) Positive (NEGATIVE) A 07/05/17 10:19 Stool for White Cells Positive (NEGATIVE) A 07/05/17 10:19 Stl C. diff Tox B Gene Positive (NEGATIVE) A 07/05/17 10:19 Stl C. diff [id number] Positive (NEGATIVE) A 07/05/17 10:19 Digoxin 1.91 ng/mL (0.9-2) 07/07/17 08:05 - Plan (1) C. difficile diarrhea Status: Acute Plan: Flagyl and Vanco, PAIN AND NAUSEA CONTROL. REPEAT STOOL STUDIES COLLECTED. AM LABS, CBC WITH PERIPHERAL SMEAR/ PATHOLOGY PENDING. ANUSOL SUPP. CONTINUE HOME MEDICATION, I & OS, AM CXR (2) Abdominal pain Status: Acute (3) Leukocytosis Status: Acute Plan: Labs daily. Vanco and Flagyl (4) Atrial fibrillation Status: Acute Plan: AMIODERONE, BB, LANOXIN. MISDRAW HAND, CARDIAC PROFILE THIS AM (5) Acute on chronic kidney failure Status: Acute Plan: IV Hydration, Labs (6) Proctitis Status: Acute Plan: IV ATBX, RECTAL CORTISONE (7) Pneumonia Status: Acute
[2017-07-07] MEDS: LANOXIN PO SCH (15:55)
[2017-07-08] MEDS: NS 1000 ML 1,000 ML IV SCH ×3 (01:55→17:24)
[2017-07-08] MEDS: FLAGYL TAB 500 MG PO SCH ×3 (05:33→21:13)
[2017-07-08 07:06] LABS: BASOPHILS # (AUTO) 0.2 X10^3/uL (0.0-0.1); BASOPHILS % (AUTO) 0.4 % (0.2-1.0); EOSINOPHILS # (AUTO) 0.4 x10^3/uL (0.0-0.2); EOSINOPHILS % (AUTO) 1.1 % (0.9-2.9); HEMATOCRIT 29.1 % (42.0-54.0); HEMOGLOBIN 9.3 g/dL (13.5-18.0); LYMPHOCYTES # (AUTO) 0.9 X10^3/uL (1.3-2.9); LYMPHOCYTES % (AUTO) 2.3 % (21.0-51.0); MEAN CORPUSCULAR HEMOGLOBIN 25.3 pg (27.0-34.0); MEAN PLATELET VOLUME 9.1 fL (7.4-11.0); MONOCYTES # (AUTO) 1.5 x10^3/uL (0.3-0.8); MONOCYTES % (AUTO) 3.9 % (0.0-13.0); NEUTROPHILS # (AUTO) 35.9 x10^3/uL (2.2-4.8); NEUTROPHILS % (AUTO) 92.3 % (42.0-75.0); PLATELET COUNT 260 X10^3/uL (150.0-450.0); RED BLOOD COUNT 3.69 X10^6/uL (4.7-6.0); RED CELL DISTRIBUTION WIDTH 21.6 % (11.6-16.5)
[2017-07-08 07:12] LABS: WHITE BLOOD COUNT 38.9 X10^3/uL (3.6-10.0)
[2017-07-08 07:13] LABS: PLATELET MORPHOLOGY COMMENT NORMAL (NORMAL)
[2017-07-08 07:21] LABS: ANISOCYTOSIS 1+; HYPOCHROMASIA SLIGHT
[2017-07-08 07:28] LABS: ALANINE AMINOTRANSFERASE 19 Units/L (12-78); ALBUMIN 1.5 g/dL (3.4-5.0); ALKALINE PHOSPHATASE 556 Units/L (46-116); ASPARTATE AMINO TRANSFERASE 35 Units/L (15-37); BLOOD UREA NITROGEN 40 mg/dL (7-18); CALCIUM 7.2 mg/dL (8.5-10.1); CARBON DIOXIDE 21.2 mmol/L (21-32); CHLORIDE 105 mmol/L (98-107); COR CA(FOR HYPOALB) 9.2 mg/dL (8.5-10.1); CREATININE 1.82 mg/dL (0.70-1.30); SODIUM 137 mmol/L (136-145); eGFR BLACK RACES 47 (>60); eGFR NON BLACK RACES 39 (>60)
[2017-07-08 07:32] LABS: DIGOXIN 2.01 ng/mL (0.9-2)
[2017-07-08] MEDS: ASPIRIN EC 81 MG PO SCH (08:06)
[2017-07-08] MEDS: CLARITIN PO SCH (08:06)
[2017-07-08] MEDS: LANOXIN PO SCH (08:06)
[2017-07-08] MEDS: HEMOCYTE-PLUS PO SCH (08:06)
[2017-07-08] MEDS: LIPITOR TAB 40 MG PO SCH (08:06)
[2017-07-08] MEDS: LASIX PO SCH (08:07)
[2017-07-08] MEDS: CORDARONE TAB 200 MG PO SCH (08:07)
[2017-07-08] MEDS: PROSCAR PO SCH (08:07)
[2017-07-08] MEDS: VANCOMYCIN HCL PO SCH ×4 (08:07→20:54)
[2017-07-08] MEDS: COLACE CAP 100 MG PO SCH (08:08)
[2017-07-08] MEDS: PriLOSEC PO SCH (08:08)
[2017-07-08] MEDS: LOPRESSOR TAB 50 MG PO SCH ×2 (08:08→20:53)
[2017-07-08] MEDS: K-DUR TAB 20 MEQ PO SCH (08:08)
[2017-07-08] MEDS: TYLENOL #3 TAB (W/CODEINE) PO PRN ×3 (08:12→23:34)
[2017-07-08] MEDS: XOPENEX 1.25 MG/3 ML NEBULE NEB SCH ×4 (09:50→21:54)
[2017-07-08 13:05] LABS: IRON 13 ug/dL (50-175); TOTAL IRON BINDING CAPACITY 77 ug/dL (250-450)
[2017-07-08] MEDS: BUTT CREAM (COMPOUND) TOP PRN (23:33)
[2017-07-09] MEDS: TYLENOL #3 TAB (W/CODEINE) PO PRN ×2 (05:45→20:05)
[2017-07-09] MEDS: FLAGYL TAB 500 MG PO SCH ×3 (05:45→21:10)
[2017-07-09] MEDS: BUTT CREAM (COMPOUND) TOP PRN ×2 (05:45→21:00)
[2017-07-09 06:02] LABS: BASOPHILS # (AUTO) 0.2 X10^3/uL (0.0-0.1); BASOPHILS % (AUTO) 0.7 % (0.2-1.0); EOSINOPHILS # (AUTO) 0.4 x10^3/uL (0.0-0.2); EOSINOPHILS % (AUTO) 1.4 % (0.9-2.9); HEMATOCRIT 25.9 % (42.0-54.0); HEMOGLOBIN 8.3 g/dL (13.5-18.0); LYMPHOCYTES # (AUTO) 0.9 X10^3/uL (1.3-2.9); MEAN CORPUSCULAR HEMOGLOBIN 25.4 pg (27.0-34.0); MEAN CORPUSCULAR HGB CONC 32.1 g/dL (33.0-35.0); MEAN PLATELET VOLUME 9.4 fL (7.4-11.0); MONOCYTES # (AUTO) 1.4 x10^3/uL (0.3-0.8); MONOCYTES % (AUTO) 4.7 % (0.0-13.0); NEUTROPHILS # (AUTO) 27.5 x10^3/uL (2.2-4.8); NEUTROPHILS % (AUTO) 90.2 % (42.0-75.0); PLATELET COUNT 245 X10^3/uL (150.0-450.0); RED BLOOD COUNT 3.28 X10^6/uL (4.7-6.0); RED CELL DISTRIBUTION WIDTH 21.3 % (11.6-16.5)
[2017-07-09 06:10] LABS: WHITE BLOOD COUNT 30.5 X10^3/uL (3.6-10.0)
[2017-07-09 06:12] LABS: ALANINE AMINOTRANSFERASE 17 Units/L (12-78); ALBUMIN 1.4 g/dL (3.4-5.0); ALKALINE PHOSPHATASE 548 Units/L (46-116); ASPARTATE AMINO TRANSFERASE 39 Units/L (15-37); BLOOD UREA NITROGEN 37 mg/dL (7-18); CALCIUM 6.9 mg/dL (8.5-10.1); CARBON DIOXIDE 18.6 mmol/L (21-32); CHLORIDE 107 mmol/L (98-107); CREATININE 1.81 mg/dL (0.70-1.30); SODIUM 136 mmol/L (136-145); TOTAL PROTEIN 4.6 g/dL (6.4-8.2); eGFR BLACK RACES 47 (>60); eGFR NON BLACK RACES 39 (>60)
[2017-07-09 06:29] LABS: PLATELET MORPHOLOGY COMMENT NORMAL (NORMAL)
[2017-07-09 06:31] LABS: ANISOCYTOSIS 2+; HYPOCHROMASIA 1+
--- NOTE | 2017-07-09 07:31 | RAD ---
HISTORY: 76-year-old male with C difficile and leukocytosis. Study: Frontal view of the chest. Comparison: Chest radiograph 07/07/2017 Findings: Left chest AICD is stable. The trachea is midline. The cardiac silhouette is stable. Improved pattern of aeration with mildly persistent left basilar airspace opacities without large effusion or pneumothorax. Soft tissues are u nremarkable. Osseous structures are unremarkable. IMPRESSION: 1. Improved pattern of aeration with mildly persistent left basilar airspace opacities. This suggests likely atelectasis, however, small developing pneumonia is not entirely excluded. Correlate clinical ly and follow-up to resolution. Reported By:
[2017-07-09] MEDS: HEMOCYTE-PLUS PO SCH (09:18)
[2017-07-09] MEDS: PROSCAR PO SCH (09:18)
[2017-07-09] MEDS: COLACE CAP 100 MG PO SCH ×2 (09:19)
[2017-07-09] MEDS: ASPIRIN EC 81 MG PO SCH (09:20)
[2017-07-09] MEDS: CLARITIN PO SCH (09:20)
[2017-07-09] MEDS: CORDARONE TAB 200 MG PO SCH (09:20)
[2017-07-09] MEDS: LIPITOR TAB 40 MG PO SCH (09:20)
[2017-07-09] MEDS: VANCOMYCIN HCL PO SCH ×4 (09:20→20:05)
[2017-07-09] MEDS: K-DUR TAB 20 MEQ PO SCH (09:21)
[2017-07-09] MEDS: LANOXIN PO SCH (09:21)
[2017-07-09] MEDS: LASIX PO SCH (09:21)
[2017-07-09] MEDS: LOPRESSOR TAB 50 MG PO SCH ×2 (09:21→21:54)
[2017-07-09] MEDS: PriLOSEC PO SCH (09:21)
[2017-07-09] MEDS: XOPENEX 1.25 MG/3 ML NEBULE NEB SCH ×4 (09:31→20:47)
[2017-07-09] MEDS: NS 1000 ML 1,000 ML IV SCH ×3 (12:01→22:19)
[2017-07-10] MEDS: FLAGYL TAB 500 MG PO SCH ×4 (06:10→21:45)
[2017-07-10 06:23] LABS: BASOPHILS # (AUTO) 0.1 X10^3/uL (0.0-0.1); BASOPHILS % (AUTO) 0.6 % (0.2-1.0); EOSINOPHILS # (AUTO) 0.4 x10^3/uL (0.0-0.2); EOSINOPHILS % (AUTO) 1.7 % (0.9-2.9); HEMATOCRIT 30.3 % (42.0-54.0); HEMOGLOBIN 9.7 g/dL (13.5-18.0); LYMPHOCYTES # (AUTO) 1.2 X10^3/uL (1.3-2.9); MEAN CORPUSCULAR HEMOGLOBIN 25.6 pg (27.0-34.0); MEAN CORPUSCULAR VOLUME 79.9 fL (80.0-100.0); MEAN PLATELET VOLUME 9.1 fL (7.4-11.0); MONOCYTES # (AUTO) 1.2 x10^3/uL (0.3-0.8); MONOCYTES % (AUTO) 5.1 % (0.0-13.0); NEUTROPHILS # (AUTO) 20.4 x10^3/uL (2.2-4.8); NEUTROPHILS % (AUTO) 87.6 % (42.0-75.0); PLATELET COUNT 301 X10^3/uL (150.0-450.0); RED BLOOD COUNT 3.79 X10^6/uL (4.7-6.0); RED CELL DISTRIBUTION WIDTH 21.9 % (11.6-16.5); WHITE BLOOD COUNT 23.3 X10^3/uL (3.6-10.0)
[2017-07-10 06:37] LABS: ALANINE AMINOTRANSFERASE 18 Units/L (12-78); ALBUMIN 1.7 g/dL (3.4-5.0); ALKALINE PHOSPHATASE 598 Units/L (46-116); ASPARTATE AMINO TRANSFERASE 43 Units/L (15-37); BLOOD UREA NITROGEN 33 mg/dL (7-18); CALCIUM 7.3 mg/dL (8.5-10.1); CARBON DIOXIDE 20.1 mmol/L (21-32); CHLORIDE 108 mmol/L (98-107); COR CA(FOR HYPOALB) 9.1 mg/dL (8.5-10.1); CREATININE 1.73 mg/dL (0.70-1.30); SODIUM 137 mmol/L (136-145); TOTAL PROTEIN 5.2 g/dL (6.4-8.2); eGFR BLACK RACES 50 (>60); eGFR NON BLACK RACES 41 (>60)
[2017-07-10 06:54] LABS: BAND NEUTROPHILS % 2 % (0-10); PLATELET MORPHOLOGY COMMENT NORMAL (NORMAL)
[2017-07-10 06:55] LABS: ANISOCYTOSIS 1+; HYPOCHROMASIA SLIGHT
--- NOTE | 2017-07-10 07:23 | RAD ---
History: Hypertension, CHF, COPD, abdominal mass Study: Portable chest Findings: Portable AP erect chest labeled 652 hours shows the cardiac silhouette to be within normal limits. The left-sided cardiac pacer is unchanged in appearance. The pulmonary vasculature is mildly congested. No pneumonia or pleural effusion is seen. No acute osseous abnormality is evident. Impression: 1. No acute radiographic lung findings. 2. Mild vascular congestion Reported By:
[2017-07-10] MEDS: XOPENEX 1.25 MG/3 ML NEBULE NEB SCH ×4 (08:22→20:52)
[2017-07-10] MEDS: LANOXIN PO SCH (08:37)
[2017-07-10] MEDS: COLACE CAP 100 MG PO SCH (08:38)
[2017-07-10] MEDS: LOPRESSOR TAB 50 MG PO SCH ×2 (08:43→21:55)
[2017-07-10] MEDS: ASPIRIN EC 81 MG PO SCH (08:43)
[2017-07-10] MEDS: K-DUR TAB 20 MEQ PO SCH (08:43)
[2017-07-10] MEDS: LASIX PO SCH (08:43)
[2017-07-10] MEDS: TYLENOL #3 TAB (W/CODEINE) PO PRN (08:43)
[2017-07-10] MEDS: CLARITIN PO SCH (08:43)
[2017-07-10] MEDS: VANCOMYCIN HCL PO SCH ×5 (08:43→21:45)
[2017-07-10] MEDS: PriLOSEC PO SCH (08:43)
[2017-07-10] MEDS: HEMOCYTE-PLUS PO SCH (08:43)
[2017-07-10] MEDS: CORDARONE TAB 200 MG PO SCH (08:44)
[2017-07-10] MEDS: LIPITOR TAB 40 MG PO SCH (08:44)
[2017-07-10] MEDS: PROSCAR PO SCH (08:44)
[2017-07-10] MEDS: NS 1000 ML 1,000 ML IV SCH ×2 (12:20→17:06)
[2017-07-10] MEDS: LASIX IVP SCH ×2 (13:50→21:45)
[2017-07-10] MEDS ORDERED: VISTARIL PO PRN (20:00)
[2017-07-10] MEDS: BUTT CREAM (COMPOUND) TOP PRN (21:45)
[2017-07-11] MEDS: NS 1000 ML 1,000 ML IV SCH ×2 (01:23→13:30)
[2017-07-11 05:32] LABS: BASOPHILS # (AUTO) 0.2 X10^3/uL (0.0-0.1); BASOPHILS % (AUTO) 1.3 % (0.2-1.0); EOSINOPHILS # (AUTO) 0.3 x10^3/uL (0.0-0.2); EOSINOPHILS % (AUTO) 1.4 % (0.9-2.9); HEMATOCRIT 25.7 % (42.0-54.0); HEMOGLOBIN 8.4 g/dL (13.5-18.0); LYMPHOCYTES % (AUTO) 5.3 % (21.0-51.0); MEAN CORPUSCULAR HEMOGLOBIN 26.1 pg (27.0-34.0); MEAN CORPUSCULAR HGB CONC 32.8 g/dL (33.0-35.0); MEAN CORPUSCULAR VOLUME 79.7 fL (80.0-100.0); MEAN PLATELET VOLUME 9.1 fL (7.4-11.0); MONOCYTES # (AUTO) 1.2 x10^3/uL (0.3-0.8); MONOCYTES % (AUTO) 6.1 % (0.0-13.0); NEUTROPHILS # (AUTO) 16.5 x10^3/uL (2.2-4.8); NEUTROPHILS % (AUTO) 85.9 % (42.0-75.0); PLATELET COUNT 283 X10^3/uL (150.0-450.0); RED BLOOD COUNT 3.23 X10^6/uL (4.7-6.0); RED CELL DISTRIBUTION WIDTH 22.1 % (11.6-16.5); WHITE BLOOD COUNT 19.2 X10^3/uL (3.6-10.0)
[2017-07-11 05:33] LABS: ALANINE AMINOTRANSFERASE 17 Units/L (12-78); ALBUMIN 1.5 g/dL (3.4-5.0); ALKALINE PHOSPHATASE 541 Units/L (46-116); ASPARTATE AMINO TRANSFERASE 34 Units/L (15-37); BLOOD UREA NITROGEN 29 mg/dL (7-18); CARBON DIOXIDE 22.3 mmol/L (21-32); CHLORIDE 110 mmol/L (98-107); CREATININE 1.66 mg/dL (0.70-1.30); SODIUM 138 mmol/L (136-145); TOTAL PROTEIN 4.6 g/dL (6.4-8.2); eGFR BLACK RACES 52 (>60); eGFR NON BLACK RACES 43 (>60)
[2017-07-11 06:09] LABS: ANISOCYTOSIS 2+; HYPOCHROMASIA 1+; PLATELET MORPHOLOGY COMMENT NORMAL (NORMAL)
[2017-07-11] MEDS: FLAGYL TAB 500 MG PO SCH ×3 (06:11→21:19)
[2017-07-11] MEDS: PriLOSEC PO SCH (08:11)
[2017-07-11] MEDS: HEMOCYTE-PLUS PO SCH (08:11)
[2017-07-11] MEDS: K-DUR TAB 20 MEQ PO SCH (08:11)
[2017-07-11] MEDS: CORDARONE TAB 200 MG PO SCH (08:11)
[2017-07-11] MEDS: TYLENOL #3 TAB (W/CODEINE) PO PRN (08:11)
[2017-07-11] MEDS: LASIX PO SCH (08:20)
[2017-07-11] MEDS: CLARITIN PO SCH (08:20)
[2017-07-11] MEDS: VANCOMYCIN HCL PO SCH ×4 (08:20→21:19)
[2017-07-11] MEDS: LOPRESSOR TAB 50 MG PO SCH ×2 (08:20→20:12)
[2017-07-11] MEDS: ASPIRIN EC 81 MG PO SCH (08:20)
[2017-07-11] MEDS: LIPITOR TAB 40 MG PO SCH (08:20)
[2017-07-11] MEDS: PROSCAR PO SCH (08:20)
[2017-07-11] MEDS: COLACE CAP 100 MG PO SCH (08:22)
[2017-07-11] MEDS: LANOXIN PO SCH (09:05)
[2017-07-11] MEDS: XOPENEX 1.25 MG/3 ML NEBULE NEB SCH ×4 (09:42→21:58)
--- NOTE | 2017-07-11 13:34 | PCM.PROG ---
Progress Note - Progress Note for Day of Date: 07/11/17 - Subjective Subjective: 76WM DIRECT ADMIT FROM [facility] WITH C DIFF COLITIS AND EXTREME LEUKOCYTOSIS. CBC SMEAR SENT FOR PATHOLOGY R/O LEUKEMIA. WITH INFECTIOUS TREATMENT PT HAS IMPROVED WBC TO 19.2 PT HAS MUCH IMPROVED ABDOMINAL PAIN. CONTINUES WITH CO LOOSE STOOL, NOW ~3 LOOSE BM'S PER DAY - Past Medical Family Social History Past Med/Fam/Surg Hx: No changes since H&P Allergies: Allergies No Known Drug Allergies Allergy (Verified 07/04/17 18:41) - Review of Systems ROS: No change since H&P, Changes notes (describe) - Vital Signs and I&O's Vital Signs: Temperature 97.5 F Pulse Rate [Right] 69 Pulse Rate 69 Respiratory Rate 24 Blood Pressure [Right Arm] 112/55 O2 Sat by Pulse Oximetry 100 Intake and Output: Intake & Output 07/09/17 07/10/17 07/11/17 07/12/17 11:59 11:59 11:59 11:59 Intake Total 2205 1969 192 Output Total 450 Balance [id number] - Physical Exam Oriented: Normal Eyes: Normal Ear: Normal Nose: Normal Throat: Normal Respiratory: Diminished Cardiovascular: Normal. negative: Edema : Normal Auscultation: Bowel Sounds: Normal Tenderness: Diffuse (MILD) Skin: Decreased Turgur Musculoskeletal: Normal Psychiatric: Normal Mood Description: Calm Affect: Normal Speech Pattern: Clear, Appropriate - Laboratory and Diagnostics Result Diagrams: 07/11/17 04:13 07/11/17 04:13 Labs: 07/04/17 18:52 Blood Blood Culture - Final 07/04/17 18:41 Blood Blood Culture - Final 07/05/17 10:19 Stool Stool Culture - Final 07/05/17 10:19 Stool - Final Laboratory WBC 19.2 X10^3/uL (3.6-10.0) H 07/11/17 04:13 RBC 3.23 X10^6/uL (4.7-6.0) L 07/11/17 04:13 Hgb 8.4 g/dL (13.5-18.0) L 07/11/17 04:13 Hct 25.7 % (42.0-54.0) L 07/11/17 04:13 MCV 79.7 fL (80.0-100.0) L 07/11/17 04:13 MCH 26.1 pg (27.0-34.0) L 07/11/17 04:13 MCHC 32.8 g/dL (33.0-35.0) L 07/11/17 04:13 RDW 22.1 % (11.6-16.5) H 07/11/17 04:13 Plt Count 283 X10^3/uL (150.0-450.0) 07/11/17 04:13 Plt Count Comment Adequate (ADEQUATE) 07/11/17 04:13 MPV 9.1 fL (7.4-11.0) 07/11/17 04:13 Neut % (Auto) 85.9 % (42.0-75.0) H 07/11/17 04:13 Lymph % (Auto) 5.3 % (21.0-51.0) L 07/11/17 04:13 Sullivan % (Auto) 6.1 % (0.0-13.0) 07/11/17 04:13 Eos % (Auto) 1.4 % (0.9-2.9) 07/11/17 04:13 Baso % (Auto) 1.3 % (0.2-1.0) H 07/11/17 04:13 Neut # (Auto) 16.5 x10^3/uL (2.2-4.8) H 07/11/17 04:13 Lymph # (Auto) 1.0 X10^3/uL (1.3-2.9) L 07/11/17 04:13 Sullivan # (Auto) 1.2 x10^3/uL (0.3-0.8) H 07/11/17 04:13 Eos # (Auto) 0.3 x10^3/uL (0.0-0.2) H 07/11/17 04:13 Baso # (Auto) 0.2 X10^3/uL (0.0-0.1) H 07/11/17 04:13 Absolute Nucleated RBC 0.0 /100WBC 07/11/17 04:13 Total Counted 100 07/10/17 05:57 Neutrophils % (Manual) 91 % (39-76) H 07/10/17 05:57 Band Neutrophils % 2 % (0-10) 07/10/17 05:57 Lymphocytes % (Manual) 5 % (13-43) L 07/10/17 05:57 Monocytes % (Manual) 1 % (4-9) L 07/10/17 05:57 Eosinophils % (Manual) 1 % (0-6) 07/10/17 05:57 Plt Morphology Comment Normal (NORMAL) 07/11/17 04:13 RBC Morphology Abnormal (NORMAL) 07/11/17 04:13 Hypochromasia 1+ A 07/11/17 04:13 Poikilocytosis Slight A 07/04/17 18:41 Anisocytosis 2+ A 07/11/17 04:13 Smear Path Review See note 07/05/17 05:50 Sample Site Lra 07/07/17 09:00 ABG pH 7.450 (7.35-7.45) 07/07/17 09:00 ABG pCO2 31.0 mmHg (35.0-45.0) L 07/07/17 09:00 ABG pO2 95.0 mmHg (80.0-100.0) 07/07/17 09:00 ABG HCO3 21.5 mmol/L (22-26) L 07/07/17 09:00 ABG O2 Saturation 98.0 % (90-100) 07/07/17 09:00 ABG Base Excess -1.7 mmol/L (-2.0-2.0) 07/07/17 09:00 Eb Test Pos 07/07/17 09:00 A-a Gradient 66.0 mmHg 07/07/17 09:00 FiO2 28.000 07/07/17 09:00 Blood Gas Comments Tasia well cs 07/07/17 09:00 Sodium 138 mmol/L (136-145) 07/11/17 04:13 Corrected Sodium TNP 07/11/17 04:13 Potassium 4.8 mmol/L (3.5-5.1) 07/11/17 04:13 Chloride 110 mmol/L (98-107) H 07/11/17 04:13 Carbon Dioxide 22.3 mmol/L (21-32) 07/11/17 04:13 BUN 29 mg/dL (7-18) H 07/11/17 04:13 Creatinine 1.66 mg/dL (0.70-1.30) H 07/11/17 04:13 Est GFR (MDRD) Af Amer 52 (>60) L 07/11/17 04:13 Est GFR (MDRD) Non-Af 43 (>60) L 07/11/17 04:13 Glucose 89 mg/dL (65-99) 07/11/17 04:13 Lactic Acid 1.7 mmol/L (0.4-2.0) 07/07/17 09:13 Calcium 7.0 mg/dL (8.5-10.1) L 07/11/17 04:13 Corrected Calcium 9.0 mg/dL (8.5-10.1) 07/11/17 04:13 Iron 13 ug/dL (50-175) L 07/08/17 06:50 TIBC 77 ug/dL (250-450) L 07/08/17 06:50 % Saturation 16.9 % (11.0-46.0) 07/08/17 06:50 Ferritin 289 ng/mL (26-388) 07/08/17 06:50 Total Bilirubin 0.30 mg/dL (0.2-1.0) 07/11/17 04:13 AST 34 Units/L (15-37) 07/11/17 04:13 ALT 17 Units/L (12-78) 07/11/17 04:13 Alkaline Phosphatase 541 Units/L (46-116) H 07/11/17 04:13 Creatine Kinase 24 Units/L (39-308) L 07/07/17 08:05 CK-MB (CK-2) < 1.0 ng/mL (0-4.0) 07/07/17 08:05 CK/CKMB % Calc 4.2 % (<4) 07/07/17 08:05 Troponin I < 0.02 ng/mL (0-1.5) 07/07/17 08:05 Total Protein 4.6 g/dL (6.4-8.2) L 07/11/17 04:13 Albumin 1.5 g/dL (3.4-5.0) L 07/11/17 04:13 Globulin 3.1 g/dL (2.5-4.5) 07/11/17 04:13 Albumin/Globulin Ratio 0.5 Ratio (1.1-2.1) L 07/11/17 04:13 Vitamin B12 > 2000 pg/mL (193-986) H 07/08/17 06:50 Folate 18.8 ng/mL (>8.6) 07/08/17 06:50 Stool Description Fob tube 07/05/17 10:19 Stl Occult Blood (IFOB) Positive (NEGATIVE) A 07/05/17 10:19 Stool for White Cells Positive (NEGATIVE) A 07/05/17 10:19 Stl C. diff Tox B Gene Positive (NEGATIVE) A 07/05/17 10:19 Stl C. diff [id number]-[id number] Positive (NEGATIVE) A 07/05/17 10:19 Digoxin 2.29 ng/mL (0.9-2) H* 07/11/17 04:13 - Plan (1) C. difficile diarrhea Status: Acute Plan: Flagyl and Vanco, PAIN AND NAUSEA CONTROL. AM LABS, CBC WITH PERIPHERAL SMEAR/ PATHOLOGY REPORT IN EMR. GRADUAL IMPROVEMENT. CONTINUE CARDIAC MONITORING, BP CONTROL. ENCOURAGE ORAL HYDRATION, CONSULT PT. REPEAT AM LABS, PLAN FOR D/C TO [place] WHEN DIARRHEA IS MORE CONTROLLED (2) Abdominal pain Status: Acute (3) Leukocytosis Status: Acute Plan: Labs daily. Vanco and Flagyl (4) Atrial fibrillation Status: Acute Plan: AMIODERONE, BB, LANOXIN. PRODUCE WEIGHER, CARDIAC PROFILE THIS AM (5) Acute on chronic kidney failure Status: Acute Plan: IV Hydration, Labs (6) Proctitis Status: Acute Plan: IV ATBX, RECTAL CORTISONE (7) Pneumonia Status: Acute
[2017-07-12] MEDS: TYLENOL #3 TAB (W/CODEINE) PO PRN ×2 (04:15→20:49)
[2017-07-12] MEDS: BUTT CREAM (COMPOUND) TOP PRN (04:15)
[2017-07-12] MEDS: NS 1000 ML 1,000 ML IV SCH ×3 (05:07→20:38)
[2017-07-12] MEDS: FLAGYL TAB 500 MG PO SCH ×3 (05:07→21:08)
[2017-07-12 05:33] LABS: ALANINE AMINOTRANSFERASE 15 Units/L (12-78); ALBUMIN 1.6 g/dL (3.4-5.0); ALKALINE PHOSPHATASE 517 Units/L (46-116); ASPARTATE AMINO TRANSFERASE 32 Units/L (15-37); BLOOD UREA NITROGEN 26 mg/dL (7-18); CALCIUM 7.3 mg/dL (8.5-10.1); CARBON DIOXIDE 20.6 mmol/L (21-32); CHLORIDE 110 mmol/L (98-107); COR CA(FOR HYPOALB) 9.2 mg/dL (8.5-10.1); CREATININE 1.72 mg/dL (0.70-1.30); SODIUM 139 mmol/L (136-145); eGFR BLACK RACES 50 (>60); eGFR NON BLACK RACES 41 (>60)
[2017-07-12 05:34] LABS: BASOPHILS # (AUTO) 0.2 X10^3/uL (0.0-0.1); BASOPHILS % (AUTO) 1.2 % (0.2-1.0); EOSINOPHILS # (AUTO) 0.3 x10^3/uL (0.0-0.2); EOSINOPHILS % (AUTO) 1.8 % (0.9-2.9); HEMATOCRIT 28.6 % (42.0-54.0); HEMOGLOBIN 9.3 g/dL (13.5-18.0); LYMPHOCYTES # (AUTO) 1.3 X10^3/uL (1.3-2.9); LYMPHOCYTES % (AUTO) 6.9 % (21.0-51.0); MEAN CORPUSCULAR HEMOGLOBIN 26.3 pg (27.0-34.0); MEAN CORPUSCULAR HGB CONC 32.5 g/dL (33.0-35.0); MEAN PLATELET VOLUME 9.3 fL (7.4-11.0); MONOCYTES # (AUTO) 1.2 x10^3/uL (0.3-0.8); MONOCYTES % (AUTO) 6.5 % (0.0-13.0); NEUTROPHILS # (AUTO) 15.9 x10^3/uL (2.2-4.8); NEUTROPHILS % (AUTO) 83.6 % (42.0-75.0); PLATELET COUNT 337 X10^3/uL (150.0-450.0); RED BLOOD COUNT 3.53 X10^6/uL (4.7-6.0); RED CELL DISTRIBUTION WIDTH 22.9 % (11.6-16.5); WHITE BLOOD COUNT 19.1 X10^3/uL (3.6-10.0)
[2017-07-12 06:08] LABS: ANISOCYTOSIS 2+; HYPOCHROMASIA SLIGHT; PLATELET MORPHOLOGY COMMENT NORMAL (NORMAL)
--- NOTE | 2017-07-12 07:17 | RAD ---
HISTORY: Abdominal pain Study: KUB Comparison: None Findings: The abdominal gas pattern is nonspecific and nonobstructive. No abnormal masses or abnormal calcifica tions are identified. The patient appears to be status post cholecystectomy. The regional skeleton is intact. IMPRESSION: Unremarkable abdomen Reported By:
[2017-07-12] MEDS: COLACE CAP 100 MG PO SCH (08:24)
[2017-07-12] MEDS: K-DUR TAB 20 MEQ PO SCH (08:24)
[2017-07-12] MEDS: XOPENEX 1.25 MG/3 ML NEBULE NEB SCH ×4 (08:51→21:55)
[2017-07-12] MEDS: PROSCAR PO SCH (08:57)
[2017-07-12] MEDS: CLARITIN PO SCH (08:58)
[2017-07-12] MEDS: LOPRESSOR TAB 50 MG PO SCH ×2 (08:59→20:49)
[2017-07-12] MEDS: CORDARONE TAB 200 MG PO SCH (08:59)
[2017-07-12] MEDS: VANCOMYCIN HCL PO SCH ×4 (08:59→20:49)
[2017-07-12] MEDS: HEMOCYTE-PLUS PO SCH (08:59)
[2017-07-12] MEDS: LIPITOR TAB 40 MG PO SCH (08:59)
[2017-07-12] MEDS: ASPIRIN EC 81 MG PO SCH (08:59)
[2017-07-12] MEDS: LASIX PO SCH (08:59)
[2017-07-12] MEDS: PriLOSEC PO SCH (08:59)
[2017-07-12] MEDS: LOTRIMIN CREAM TOP SCH ×2 (13:12→20:49)
[2017-07-13] MEDS: FLAGYL TAB 500 MG PO SCH ×2 (05:59→13:12)
[2017-07-13] MEDS: TYLENOL #3 TAB (W/CODEINE) PO PRN (06:00)
[2017-07-13 06:10] LABS: BASOPHILS # (AUTO) 0.2 X10^3/uL (0.0-0.1); BASOPHILS % (AUTO) 1.3 % (0.2-1.0); EOSINOPHILS # (AUTO) 0.4 x10^3/uL (0.0-0.2); EOSINOPHILS % (AUTO) 2.7 % (0.9-2.9); HEMATOCRIT 27.6 % (42.0-54.0); HEMOGLOBIN 8.8 g/dL (13.5-18.0); LYMPHOCYTES # (AUTO) 1.2 X10^3/uL (1.3-2.9); MEAN CORPUSCULAR HEMOGLOBIN 25.7 pg (27.0-34.0); MEAN CORPUSCULAR HGB CONC 31.9 g/dL (33.0-35.0); MEAN CORPUSCULAR VOLUME 80.7 fL (80.0-100.0); MONOCYTES # (AUTO) 1.1 x10^3/uL (0.3-0.8); MONOCYTES % (AUTO) 6.5 % (0.0-13.0); NEUTROPHILS # (AUTO) 13.8 x10^3/uL (2.2-4.8); NEUTROPHILS % (AUTO) 82.5 % (42.0-75.0); PLATELET COUNT 350 X10^3/uL (150.0-450.0); RED BLOOD COUNT 3.42 X10^6/uL (4.7-6.0); RED CELL DISTRIBUTION WIDTH 22.6 % (11.6-16.5); WHITE BLOOD COUNT 16.7 X10^3/uL (3.6-10.0)
[2017-07-13 06:38] LABS: ANISOCYTOSIS 2+; PLATELET MORPHOLOGY COMMENT NORMAL (NORMAL)
[2017-07-13 06:48] LABS: ALANINE AMINOTRANSFERASE 16 Units/L (12-78); ALBUMIN 1.7 g/dL (3.4-5.0); ALKALINE PHOSPHATASE 432 Units/L (46-116); ASPARTATE AMINO TRANSFERASE 25 Units/L (15-37); BLOOD UREA NITROGEN 23 mg/dL (7-18); CALCIUM 7.4 mg/dL (8.5-10.1); CARBON DIOXIDE 20.7 mmol/L (21-32); CHLORIDE 111 mmol/L (98-107); COR CA(FOR HYPOALB) 9.2 mg/dL (8.5-10.1); CREATININE 1.57 mg/dL (0.70-1.30); SODIUM 140 mmol/L (136-145); TOTAL PROTEIN 5.1 g/dL (6.4-8.2); eGFR BLACK RACES 56 (>60); eGFR NON BLACK RACES 46 (>60)
[2017-07-13] MEDS: XOPENEX 1.25 MG/3 ML NEBULE NEB SCH (08:30)
[2017-07-13] MEDS: VANCOMYCIN HCL PO SCH ×2 (09:05→13:12)
[2017-07-13] MEDS: LOPRESSOR TAB 50 MG PO SCH (09:06)
[2017-07-13] MEDS: COLACE CAP 100 MG PO SCH (09:06)
[2017-07-13] MEDS: CORDARONE TAB 200 MG PO SCH (09:06)
[2017-07-13] MEDS: CLARITIN PO SCH (09:06)
[2017-07-13] MEDS: PriLOSEC PO SCH (09:06)
[2017-07-13] MEDS: K-DUR TAB 20 MEQ PO SCH (09:06)
[2017-07-13] MEDS: LASIX PO SCH (09:06)
[2017-07-13] MEDS: ASPIRIN EC 81 MG PO SCH (09:06)
[2017-07-13] MEDS: HEMOCYTE-PLUS PO SCH (09:06)
[2017-07-13] MEDS: PROSCAR PO SCH (09:06)
[2017-07-13] MEDS: LIPITOR TAB 40 MG PO SCH (09:07)
[2017-07-13] MEDS: LOTRIMIN CREAM TOP SCH (09:20)
[2017-07-13 12:15] VITALS: BP 104/59
== END 2017-07-13 13:40 | DRG 372 ==
LOC: OBS 16:20 → ICU 07-07 10:35
PROVIDERS: ADMIT Internal Medicine; ATTEND Internal Medicine
DX: A04.72 Enterocolitis due to Clostridium difficile, not specified as recurrent (principal); I48.91 Unspecified atrial fibrillation; D72.828 Other elevated white blood cell count; J44.9 Chronic obstructive pulmonary disease, unspecified; I10 Essential (primary) hypertension; I50.9 Heart failure, unspecified; Z95.0 Presence of cardiac pacemaker; N17.8 Other acute kidney failure; N18.9 Chronic kidney disease, unspecified; R10.84 Generalized abdominal pain
CPT/HCPCS: 36415; 36600; 71045; 74018; 74176; 80053; 80162; 82274; 82550; 82553; 82607; 82728; 82746; 82803; 83540; 83550; 83605; 83630; 84484; 85025; 85060; 87040; 87045; 87427; 87449; 87493; 93005; 93010; 94640; 94760; 99231; A4216; A4222; Q0177; S0138; S0181; J1940; J2270; J7620